=== PATIENT | female | born 1950 | race Caucasian/White ===

== ENCOUNTER 2017-07-11 08:06 | Day surgery (SDC) | payer MEDICARE ==
[~2017-07-11] VITALS: Ht 154.9 cm; Wt 147.9 kg
[~2017-07-11 08:06] MED LIST: ACIDOPHILUS1 EAC1 PO; ALLO100 PO; AMLO5 PO; Adipex-P37.5 M1 PO; BIOTIN-D1 GM PO; CALCIUM CITRAT1 EAC6 PO; Cinnamon500 MG PO; Dyazide 37.5-21 EACH PO; LOSA25 PO; MAGOXI400 PO; Pantothenic Ac500 MG PO; Super B Comple150 MG PO; THIA100 PO; VITAMIN B122500 MC1 PO
== END 2017-07-11 23:05 | disposition home or self-care (01) ==
LOC: ORSCMMR 08:06
PROVIDERS: Internal Medicine Gastroenterology
PROC: 0DBM8ZX Excision of Descending Colon, Via Natural or Artificial Opening Endoscopic, Diagnostic (ICD-10-PCS; principal; 2017-07-11 09:30)
PROC: 0DBN8ZX Excision of Sigmoid Colon, Via Natural or Artificial Opening Endoscopic, Diagnostic (ICD-10-PCS; principal; 2017-07-11 09:30)
DX: Z12.11 Encounter for screening for malignant neoplasm of colon (principal); D12.4 Benign neoplasm of descending colon; D12.5 Benign neoplasm of sigmoid colon; K57.30 Diverticulosis of large intestine without perforation or abscess without bleeding; N18.3 Chronic kidney disease, stage 3 (moderate); K64.8 Other hemorrhoids; E66.01 Morbid (severe) obesity due to excess calories; Z68.44 Body mass index [BMI] 60.0-69.9, adult; Z79.899 Other long term (current) drug therapy
CPT/HCPCS: 88305; J2250; J7120

== ENCOUNTER → 2020-02-29 | Outpatient (CLI) | payer MEDICARE, BC ==
[2020-03-02 13:59] LABS: CORONAVIRUS (COVID19) CSH-NRL Negative (Negative)
== END | disposition home or self-care (01) ==
LOC: LAB SHORT 18:27 → LAB 18:27
PROVIDERS: Physician Assistant Medical
DX: R05 Cough (principal); Z20.828 Contact with and (suspected) exposure to other viral communicable diseases
CPT/HCPCS: U0003

== ENCOUNTER → 2021-09-13 | Outpatient (CLI) | payer MEDICARE, BC | END | disposition home or self-care (01) | LOC: LAB SHORT 14:17 | DX: L82.1 Other seborrheic keratosis (principal) | CPT/HCPCS: 88305 ==

== ENCOUNTER 2022-03-08 00:10 | Day surgery (SDC) | payer MEDICARE, BC | END 2022-03-08 22:46 | disposition home or self-care (01) | LOC: WOUND 00:10 | DX: L89.893 Pressure ulcer of other site, stage 3 (principal); S71.101D Unspecified open wound, right thigh, subsequent encounter; S71.102D Unspecified open wound, left thigh, subsequent encounter; M19.90 Unspecified osteoarthritis, unspecified site; M54.9 Dorsalgia, unspecified; I12.9 Hypertensive chronic kidney disease with stage 1 through stage 4 chronic kidney disease, or unspecified chronic kidney disease; N18.30 Chronic kidney disease, stage 3 unspecified; Z96.652 Presence of left artificial knee joint | CPT/HCPCS: A9270; G0463 ==

== ENCOUNTER 2022-03-29 00:33 | Day surgery (SDC) | payer MEDICARE, BC | END 2022-03-29 23:02 | disposition home or self-care (01) | LOC: WOUND 00:33 | DX: L89.893 Pressure ulcer of other site, stage 3 (principal); S71.101D Unspecified open wound, right thigh, subsequent encounter; S71.102D Unspecified open wound, left thigh, subsequent encounter; I10 Essential (primary) hypertension; M19.90 Unspecified osteoarthritis, unspecified site | CPT/HCPCS: A9270; G0463 ==

== ENCOUNTER 2022-04-12 01:32 | Day surgery (SDC) | payer MEDICARE, BC | END 2022-04-13 23:29 | disposition home or self-care (01) | LOC: WOUND 01:32 | DX: L89.893 Pressure ulcer of other site, stage 3 (principal); I10 Essential (primary) hypertension; M19.09 Primary osteoarthritis, other specified site | CPT/HCPCS: G0463 ==

== ENCOUNTER 2022-05-03 02:53 | Day surgery (SDC) | payer MEDICARE, BC | END 2022-05-03 22:54 | disposition home or self-care (01) | LOC: WOUND 02:53 | DX: L97.129 Non-pressure chronic ulcer of left thigh with unspecified severity (principal); L97.119 Non-pressure chronic ulcer of right thigh with unspecified severity | CPT/HCPCS: A9270; G0463 ==

== ENCOUNTER 2022-06-26 12:18 | Observation (INO) | payer MEDICARE, BC ==
[~2022-06-26] VITALS: Ht 157.5 cm; Wt 133.8 kg
[2022-06-26 13:56] LABS: BASOPHILS ABSOLUTE AUTO 0.05 K/mm3 (0.00-0.23); BASOPHILS PERCENT AUTO 0 % (0-2); EOSINOPHILS ABSOLUTE AUTO 0.32 K/mm3 (0.00-0.68); EOSINOPHILS PERCENT AUTO 3 % (0-6); Hematocrit 40.6 % (33.0-51.0); Hemoglobin 12.7 g/dL (11.5-16.0); IMMATURE GRAN ABSOLUTE AUTO 0.06 K/mm3 (0.00-0.10); IMMATURE GRAN PERCENT AUTO 1 % (0-1); LYMPHOCYTES ABSOLUTE AUTO 0.77 K/mm3 (0.84-5.20); LYMPHOCYTES PERCENT AUTO 7 % (21-46); MONOCYTES ABSOLUTE AUTO 0.69 K/mm3 (0.16-1.47); MONOCYTES PERCENT AUTO 6 % (4-13); Mean Corpuscular HGB 28.5 pg (26.0-34.0); Mean Corpuscular HGB Conc 31.3 g/dL (31.5-36.5); Mean Corpuscular Volume 91 fL (80-100); Mean Platelet Volume 11.2 fL (9.1-12.4); NEUTROPHILS ABSOLUTE AUTO 9.46 K/mm3 (1.96-9.15); NEUTROPHILS PERCENT AUTO 83 % (41-73); Platelet Count 208 K/mm3 (150-400); RDW Coefficient Variation 14.1 % (11.7-14.2); RDW Standard Deviation 47.9 fL (35.1-46.3); Red Blood Cell Count 4.45 M/mm3 (3.80-5.20); White Blood Cell Count 11.35 K/mm3 (4.00-11.30)
[2022-06-26 14:17] LABS: Albumin, Blood 3.6 g/dL (3.4-5.0); Bilirubin, Total 0.3 mg/dL (0.1-1.0); Bun/Creatinine Ratio 24.6 (12.0-20.0); Calcium, Blood 9.5 mg/dL (8.5-10.1); Creatinine, Blood 2.03 mg/dL (0.40-1.00); Globulin, Blood 3.5 g/dL (2.2-4.0); Potassium, Blood 4.8 mmol/L (3.5-5.5); Total Protein, Blood 7.1 g/dL (6.4-8.2)
[2022-06-26 14:30] LABS: Source, Urine Voided
[2022-06-26 14:35] LABS: Appearance, Urine Clear (Clear); Bilirubin, Urine Neg (Neg); Blood, Urine Neg (Neg); Color, Urine Yellow (P-Yellow); Glucose Qualitative, Urine Neg (Neg); Ketones, Urine Neg (Neg); Leukocyte Esterase, Urine Neg (Neg); Nitrite, Urine Neg (Neg); Protein, Urine Neg (Neg); Urobilinogen, Urine NORM (Normal)
[2022-06-26] MEDS ORDERED: LOSA50 PO (20:57)
[2022-06-26] MEDS ORDERED: ROSU5 PO (20:58)
[2022-06-26] MEDS ORDERED: GABA100 PO (21:05)
[2022-06-26 23:49] VITALS: BP 142/57
[2022-06-27 05:31] VITALS: BP 153/65
[2022-06-27 05:50] LABS: BASOPHILS ABSOLUTE AUTO 0.05 K/mm3 (0.00-0.23); BASOPHILS PERCENT AUTO 1 % (0-2); EOSINOPHILS ABSOLUTE AUTO 0.56 K/mm3 (0.00-0.68); EOSINOPHILS PERCENT AUTO 8 % (0-6); Hematocrit 35.5 % (33.0-51.0); Hemoglobin 11.2 g/dL (11.5-16.0); IMMATURE GRAN ABSOLUTE AUTO 0.01 K/mm3 (0.00-0.10); IMMATURE GRAN PERCENT AUTO 0 % (0-1); LYMPHOCYTES ABSOLUTE AUTO 1.28 K/mm3 (0.84-5.20); LYMPHOCYTES PERCENT AUTO 18 % (21-46); MONOCYTES ABSOLUTE AUTO 0.55 K/mm3 (0.16-1.47); MONOCYTES PERCENT AUTO 8 % (4-13); Mean Corpuscular HGB 28.5 pg (26.0-34.0); Mean Corpuscular HGB Conc 31.5 g/dL (31.5-36.5); Mean Corpuscular Volume 90 fL (80-100); Mean Platelet Volume 11.8 fL (9.1-12.4); NEUTROPHILS ABSOLUTE AUTO 4.74 K/mm3 (1.96-9.15); NEUTROPHILS PERCENT AUTO 66 % (41-73); Platelet Count 198 K/mm3 (150-400); RDW Standard Deviation 47.1 fL (35.1-46.3); Red Blood Cell Count 3.93 M/mm3 (3.80-5.20); White Blood Cell Count 7.19 K/mm3 (4.00-11.30)
[2022-06-27 06:20] LABS: Bilirubin, Total 0.3 mg/dL (0.1-1.0); Creatinine, Blood 1.31 mg/dL (0.40-1.00); Globulin, Blood 3.1 g/dL (2.2-4.0); Potassium, Blood 4.7 mmol/L (3.5-5.5); Total Protein, Blood 6.1 g/dL (6.4-8.2)
--- NOTE | 2022-06-27 07:22 | NUR ---
CAPRI SLEPT WELL AFTER ARRIVING IN ROOM 352. A&OX4, PLEASANT AND COOPERATIVE WITH CARE. THE PATIENT HAS NOT BEEN AT ALL CONFUSED. SHE IS COMFORTABLE IN THE BED, AND NOT COMPLAINING OF PAIN OR DISCOMFORT IN HER BACK OR ELSEWHERE. HOPING TO BE ABLE TO GET OOB WITH THERAPY TODAY.
[2022-06-27 07:45] VITALS: BP 136/61
[2022-06-27 16:45] VITALS: BP 146/68
--- NOTE | 2022-06-27 17:09 | NUR ---
SHIFT SUMMARY PT AOX3-4, SOMETIMES FORGETFUL. SHE GOT UP IN THE CHAIR TODAY FOR A FEW HOURS, BACK IN BED NOW. AND SONG HAVE VISITED T/O THE DAY. PT STARTED ON NEW MEDICATION FOR PAIN. POSSIBLE DISCHARGE TOMORROW. WILL REPORT TO ONCOMING NURSE.
[2022-06-27 19:19] VITALS: BP 153/73
[2022-06-28 04:28] VITALS: BP 156/81
--- NOTE | 2022-06-28 06:38 | NUR ---
ELSA SLEPT WELL MOST OF THE NIGHT. NO COMPLAINTS OF DISCOMFORT AFTER HS TRAMADOL. SHE HAS BEEN A&OX4 THROUGHOUT THE SHIFT. ABLE TO TRANSFER FROM BED TO CHAIR/BSC WITH ONE ASSIST, A GAIT BELT AND FWW. PUREWICK USED AT NIGHT PATIENT HAS URGENCY, AND IS UNABLE TO MOVE FAST ENOUGH FROM A LAYING DOWN POSITION WITHOUT BECOMING INCONTINENT. LOWER BACK INCISION WELL APPROXIMATED AND APPEARS TO BE HEALING WELL. LOOKING FORWARD TO GOING HOME
[2022-06-28 07:59] VITALS: BP 163/63
[2022-06-28 10:30] VITALS: BP 148/72
[2022-06-28 15:23] VITALS: BP 149/63
--- NOTE | 2022-06-28 16:06 | NUR ---
SHIFT SUMMARY MS RODRIGUEZ IS OX4. HER SAID THAT SHE SEEMS TO BE FORGETFUL TO HIM, BUT SHE IS ABLE TO ANSWER QUESTIONS AND ENGAGE IN REGULAR CONVERSATION. UP TO BATHROOM AND BEDSIDE COMMODE. CONTINENT OF URINE AND STOOL. STAND BY ASSISTANCE TO BSC. C/O R KNEE DISCOMFORT HELPED WITH MED DOSE AND POSITIONING WITH PILLOWS. DENIES BACK PAIN. CALL LIGHT IN REACH, USED APPROPRIATELY BY PT.
[2022-06-28 20:11] VITALS: BP 151/62
[2022-06-29 04:36] VITALS: BP 162/77
--- NOTE | 2022-06-29 05:32 | NUR ---
A/OX3-4; ALERT TO SELF AND PLACE. OCCASIONALLY DISORIENTED TO TIME /SITUATION. FORGETFUL. C/O R KNEE PAIN; PRN ANALGESICS PER EMAR ORDERS. HELPFUL PER PATIENT 1X ASSIST WITH WALKER. PIV R HAND (SL). BED ALARM SET. SLEEP PROMOTED. CALL LIGHT IN REACH; ENCOURAGED TO MAKE NEEDS KNOWN. LIKELY WILL DC THIS MORNING.
[2022-06-29 06:30] LABS: Bun/Creatinine Ratio 19.3 (12.0-20.0); Calcium, Blood 9.3 mg/dL (8.5-10.1); Creatinine, Blood 1.09 mg/dL (0.40-1.00); Potassium, Blood 3.8 mmol/L (3.5-5.5)
[2022-06-29 07:20] VITALS: BP 163/79
[2022-06-29] MEDS ORDERED: GABA300 PO (15:15)
[2022-06-29] MEDS ORDERED: AMLO5 PO (15:19)
== END 2022-06-29 15:52 | disposition home or self-care (01) ==
LOC: ER 12:18 → MEDS 12:19
PROVIDERS: Emergency Medicine; Internal Medicine; ADMIT Internal Medicine
DX: G93.41 Metabolic encephalopathy (principal); N17.9 Acute kidney failure, unspecified; I12.9 Hypertensive chronic kidney disease with stage 1 through stage 4 chronic kidney disease, or unspecified chronic kidney disease; N18.30 Chronic kidney disease, stage 3 unspecified; G89.29 Other chronic pain; M54.9 Dorsalgia, unspecified; E66.2 Morbid (severe) obesity with alveolar hypoventilation; Z68.43 Body mass index [BMI] 50.0-59.9, adult; Z79.899 Other long term (current) drug therapy
CPT/HCPCS: 36415; 51701; 70450; 80048; 80053; 81003; 85025; 94760; 96360; 96361; 96372; 97110; 97110-CQ; 97116; 97116-CQ; 97162; 97530; 99285-25; A9270; G0378; J1644; J7030

== ENCOUNTER 2023-10-03 07:15 | Day surgery (SDC) | payer MEDICARE, BC ==
[~2023-10-03] VITALS: Ht 154.9 cm; Wt 117.8 kg
[~2023-10-03 07:15] MED LIST changes: +Acetaminophen650 M1 PO; +DULO30 PO; +DYAZIDE 37.5-21 EACH PO; +GABA100 PO; +GABA300 PO; +HYDROCODONE-AC1 EAC7 PO; +IPRAT-ALBUT 0.5-3 ML INH; +LOSA50 PO; +Lactated Ringer's 1,000 ML IV SCH; +MIRALAX17 GM PO; +PANT40 PO; +ROSU5 PO; +SUCR1 PO
[2023-10-03] MEDS ORDERED: FERSU300 PO (08:07)
[2023-10-03 08:08] VITALS: BP 165/81
[2023-10-03] MEDS ORDERED: MAGNESIUM OXID500 MG PO (08:08)
[2023-10-03] MEDS ORDERED: B-12500 MC2 PO (08:10)
--- NOTE | 2023-10-03 08:28 | NUR ---
Ambulatory in Day Surgery WITH PERSONAL WALKER. History, Chart, Medications and Allergies reviewed before start of procedure. PT SPOUSE STATES SHE HAS BEEN EXPERIENCING BOUTS OF CONFUSION AT TIMES AND THAT THEY HAVE TAKEN AWAY HER DRIVING PRIVELAGES. PT IS ABLE TO TELL ME HER NAME, , PROCEDURE HAVING DONE, NPO STATUS, AND MEDICAL HX. PT POOR HISTORIAN WITH MEDICATIONS, BUT HER AND HER SPOUSE BROUGHT IN A MEDICATION LIST. Lungs clear T/O to Auscultation. Patient confirms NPO status and agrees with scheduled surgery. Pre-Op teaching done. Pt verbalizes understanding. Patient States Post-Procedure ride home has been arranged.
--- NOTE | 2023-10-03 08:32 | NUR ---
PT PERSONAL WALKER PLACED IN ENDO [address] [facility] FOR SAFEKEEPING. PT SPOUSE TOOK HER PURSE FOR SAFEKEEPING.
[2023-10-03] MEDS ORDERED: Lidocaine HCl 4% 5 ML SDA ONE (08:39)
[2023-10-03] MEDS ORDERED: propofoL 20 ML IV ONE ×2 (08:50→08:51)
--- NOTE | 2023-10-03 08:57 | NUR ---
10/03/23 0857 Mannie Singh History, Chart, Medications and Allergies reviewed before start of procedure.MONITOR INTACT WITH CONTINUOUS PULSE OXIMETRY, CONTINUOUS END TITAL CO2, AND INTERMITTENT BLOOD PRESSURE.3-LEAD EKG REVIEWED WITH PHYSICIAN PRIOR TO START OF PROCEDURE.O2 VIA POM INTACT THROUGHOUT SEDATION/PROCEDURE.See Anesthesia record.
[2023-10-03 09:15] VITALS: BP 131/69
[2023-10-03 09:30] VITALS: BP 151/87
--- NOTE | 2023-10-03 09:38 | NUR ---
DISCHARGE NOTE PT A&OX4, BREATHING RA, COLOR IS PWD, TOLERATING PO FLUIDS, AT BEDSIDE. ABDOMEN IS SOFT AND NON TENDER. Discharge instructions reviewed with patient. Patient verbalizes understanding. Copy given to patient to take home. Discharged via wheelchair to private car for ride home. WALKER WITH PT, GLASSES ON PT.
== END 2023-10-03 09:45 | disposition home or self-care (01) ==
LOC: ORSCMMR 07:15 → ORD 08:45 → ORSCMMR 08:45
PROVIDERS: Internal Medicine Gastroenterology
PROC: 0DB78ZX Excision of Stomach, Pylorus, Via Natural or Artificial Opening Endoscopic, Diagnostic (ICD-10-PCS; principal; 2023-10-03 08:45)
DX: K26.9 Duodenal ulcer, unspecified as acute or chronic, without hemorrhage or perforation (principal); K29.60 Other gastritis without bleeding; K31.5 Obstruction of duodenum; K92.1 Melena; E78.5 Hyperlipidemia, unspecified; G47.33 Obstructive sleep apnea (adult) (pediatric); J44.9 Chronic obstructive pulmonary disease, unspecified; I12.9 Hypertensive chronic kidney disease with stage 1 through stage 4 chronic kidney disease, or unspecified chronic kidney disease; N18.30 Chronic kidney disease, stage 3 unspecified; Z79.899 Other long term (current) drug therapy; E66.01 Morbid (severe) obesity due to excess calories; Z68.42 Body mass index [BMI] 45.0-49.9, adult
CPT/HCPCS: 88305; 88313; 88341; 88342; J2001; J2704; J7120

== ENCOUNTER → 2024-07-14 | Outpatient (CLI) | payer MEDICARE, BC ==
[~2024-07-14] MED LIST changes: +B-12500 MC2 PO; +FERSU300 PO; -Lactated Ringer's 1,000 ML IV SCH; +MAGNESIUM OXID500 MG PO
[2024-07-17 06:39] LABS: 11-NOR-9-CARBOXY-THC,URN,QUANT 225 ng/mL
== END ==
LOC: LAB 09:22 → LAB SHORT 09:22
PROVIDERS: Internal Medicine
DX: M48.061 Spinal stenosis, lumbar region without neurogenic claudication (principal); Z79.899 Other long term (current) drug therapy
CPT/HCPCS: G0480

== ENCOUNTER → 2025-01-21 | Outpatient (CLI) | payer MEDICARE, BC ==
[~2025-01-21] MED LIST changes: +ASPI81CH PO; +DONE5 PO; +SEMAGLUTID0.25 MG/0. INJ; +Sanctura20 MG PO; +TRAM50 PO
[2025-01-21 15:06] LABS: Source, Urine Clean Catch
[2025-01-21 17:48] LABS: Bilirubin, Urine Neg (Neg); Color, Urine Yellow (P-Yellow); Glucose Qualitative, Urine Neg (Neg); Ketones, Urine Neg (Neg); Leukocyte Esterase, Urine 1+ (Neg); Protein, Urine 1+ (Neg); Specific Gravity, Urine 1.020 (1.003-1.022); Urobilinogen, Urine NORM (Normal)
[2025-01-21 18:23] LABS: Red Blood Cells, Urine 0-2 /hpf (0-2)
[2025-01-21 19:33] LABS: Creatinine, Urine Random 122.0 mg/dL (27.00-270.00); Protein, Urine Random 16.2 mg/dL (0.0-11.9); Protein/Creat Ratio, Ur Random 0.1
== END | disposition home or self-care (01) ==
LOC: LAB 14:45 → LAB SHORT 14:45
PROVIDERS: Internal Medicine Nephrology
DX: I12.9 Hypertensive chronic kidney disease with stage 1 through stage 4 chronic kidney disease, or unspecified chronic kidney disease (principal); N18.32 Chronic kidney disease, stage 3b
CPT/HCPCS: 81001; 82570; 84156; 87086